=== PATIENT | female | born 1975 | race Asian ===

== ENCOUNTER 2020-02-10 18:12 | Emergency (ER) | payer OTHER ==
[~2020-02-10] VITALS: Ht 157.5 cm; Wt 75.3 kg
[2020-02-10 19:34] VITALS: BP 105/80; Ht 157.5 cm; Wt 75.3 kg
== END 2020-02-10 21:06 | disposition home or self-care (01) ==
LOC: ED 18:12
DX: S02.2XXA Fracture of nasal bones, initial encounter for closed fracture (principal); Z88.6 Allergy status to analgesic agent; W18.09XA Striking against other object with subsequent fall, initial encounter; Y93.89 Activity, other specified; Y92.89 Other specified places as the place of occurrence of the external cause; Y99.8 Other external cause status